=== PATIENT | male | born 1940 | race Caucasian/White ===

== ENCOUNTER 2017-04-14 20:54 | Emergency (ER) | payer BC, OTHER ==
[~2017-04-14] VITALS: Ht 170.2 cm; Wt 80.1 kg
[~2017-04-14 20:54] MED LIST: AGM875 PO
[2017-04-14 20:57] VITALS: TEMP 36.5; Ht 170.2 cm; Wt 80.1 kg
--- NOTE | 2017-04-14 21:31 | EMERGENCY ROOM VISIT NOTE ---
ED Visit Note First contact with patient: 21:05 I have seen and examined this patient with Syed Morin and generally agree with the treatment plan as discussed. Current/Historical Medications No Active Prescriptions or Reported Meds Allergies Coded Allergies: No Known Allergies (Unverified , 04/14/17) Vital Signs Date Time Temp Pulse Resp B/P (MAP) Pulse Ox O2 Delivery O2 Flow Rate FiO2 04/14/17 20:57 36.5 77 18 141/82 96 Room Air Departure Information Prescriptions No Active Prescriptions or Reported Meds Referrals Olman Márquez M.D. (PCP) Patient Instructions My [facility]
[2017-04-14 21:44] VITALS: BP 144/80; PULSE 72; O2SAT 97
--- NOTE | 2017-04-14 22:47 | EMERGENCY ROOM VISIT NOTE ---
History First contact with patient: 21:05 Chief Complaint: WOUND INFECTION Stated Complaint: SURGICAL WOUND MIGHT BE INFECTED Nursing Triage Summary: pt had frank surgery in [place] on monday on his nose, pt changed dressing today and states it doesn't look good. History of Present Illness The patient is a 76 year old male who presents to the Emergency Room for a wound check. The patient had Mohs surgery 2 days ago in [place], [place]. He has had this procedure performed multiple times on his ears and back. The procedure went well, and the patient took off his dressing today. It looks different to him than his previous experiences that he was concerned about infection. The patient has not had fever or chills. He does not have other complaints. He does not report pain. Review of Systems More than 10 systems were reviewed and otherwise negative with the exception of history of present illness. Past Medical/Surgical History History of skin cancer Family History No pertinent family history Social History Smoking Status: Never Smoker Current/Historical Medications No Active Prescriptions or Reported Meds Physical Exam Vital Signs Date Time Temp Pulse Resp B/P (MAP) Pulse Ox O2 Delivery O2 Flow Rate FiO2 04/14/17 21:44 72 18 144/80 97 Room Air 04/14/17 20:57 36.5 77 18 141/82 96 Room Air Physical Exam VITALS: Vitals are noted on the nurse's note and reviewed by myself. Vital signs stable. GENERAL: Well-developed, well-nourished, white male, who is in no acute distress and resting comfortably. Patient is cooperative with the examination. HEART: Regular rate and rhythm without murmurs gallops or rubs. LUNGS: Clear to auscultation bilaterally without wheezes, rales or rhonchi. No retractions or accessory muscle use. SKIN: The skin was with well healing area across the anterior nose consistent with recent Mohs procedure. No significant drainage or discharge. No evidence of abscess or cellulitis. Medical Decision & Procedures ED Course Physical exam and history were performed. Nursing notes, EMR, and Medication List were personally reviewed. Patient appears to have had recent Mohs surgery and is concerned for his surgical wound. On examination the wound appears well healing. The case was discussed with my attending physician, Dr. Rolle, who also with the patient. The patient is felt to be stable for discharge home and should follow with his surgeon for further care and management. He was otherwise invited back to the ER with any new, worsening, or concerning symptoms. The chart was completed utilizing [employer] Speech Voice Recognition Software. Grammatical errors, random word insertions, pronoun errors, and incomplete sentences are an occasional consequence of this system due to software limitations, ambient noise, and hardware issues. Any formal questions or concerns about the content, text, or information contained within the body of this dictation should be directly addressed to the provider for clarification. . Medical Decision Differential diagnosis: Etiologies such as cellulitis, abscess, MRSA infection, DVT, necrotizing fasciitis, dermatitis, drug eruption, as well as others were entertained.. Impression Primary Impression: Visit for wound check Additional Impression: Status post Mohs surgery Departure Information Dispostion Home / Self-Care Condition GOOD Prescriptions No Active Prescriptions or Reported Meds Forms HOME CARE DOCUMENTATION FORM, IMPORTANT VISIT INFORMATION Patient Instructions My [facility] Additional Instructions You were seen and evaluated today on an emergency basis only. This is not a substitute for, or an effort to provide, complete comprehensive medical care. It is not possible to recognize and treat all injuries or illnesses in a single emergency department visit. For this reason it is recommended that you followup with your surgeon as scheduled for ongoing care and admission. Continue to monitor the wound for any worsening of symptoms. You are welcome to return to the emergency department anytime with new, worsening, or concerning symptoms. Problem Qualifiers
== END 2017-04-14 21:46 | disposition home or self-care (01) ==
LOC: C.EDB 20:55 → C.EDD 21:46
DX: Z09 Encounter for follow-up examination after completed treatment for conditions other than malignant neoplasm (principal)